=== PATIENT | male | born 1975 | race American Indian/Alaskan Native ===

== ENCOUNTER 2017-01-17 17:41 | Emergency (ER) | payer SELFPAY ==
[2017-01-17 17:53] VITALS: BP 174/123
[2017-01-17 18:39] LABS: Basophils % (Auto) 0.5 % (0.0-1.8); Eosinophils % (Auto) 2.4 % (0.0-4.3); Hematocrit 46.5 % (35.5-45.6); Hemoglobin 15.3 gm/dl (11.8-15.2); Mean Corpuscular HGB Conc 33 % (32-34); Mean Corpuscular Hemoglobin 30 pg (28-32); Mean Corpuscular Volume 91 fl (84-94); Platelet Count 250 K/mm3 (140-440); Red Blood Count 5.09 M/mm3 (3.65-5.03); Red Cell Distribution Width 14.3 % (13.2-15.2); White Blood Count 10.4 K/mm3 (4.5-11.0)
[2017-01-17 18:45] LABS: Alanine Aminotransferase 23 units/L (7-56); Albumin 4.1 g/dL (3.9-5); Albumin/Globulin Ratio 1.3 %; Alkaline Phosphatase 54 units/L (35-129); Anion Gap 17 mmol/L; Blood Urea Nitrogen 10 mg/dL (9-20); Calcium 9.1 mg/dL (8.4-10.2); Carbon Dioxide 25 mmol/L (22-30); Chloride 100.1 mmol/L (98-107); Glucose 90 mg/dL (75-100); Lipase 46 units/L (13-60); Potassium 4.2 mmol/L (3.6-5.0); Sodium 138 mmol/L (137-145); Total Protein 7.2 g/dL (6.3-8.2)
[2017-01-17 19:17] LABS: Bilirubin,Urine NEG (Negative); Blood,Urine NEG (Negative); Ketones,Urine NEG (Negative); Leukocyte Esterase,Urine NEG (Negative); Mucus,Urine FEW /HPF; Nitrite,Urine NEG (Negative); Protein,Urine <15 mg/dL mg/dL (Negative); Urobilinogen,Urine < 2.0 mg/dL (<2.0)
--- NOTE | 2017-01-18 07:46 | ED Elopement Review ---
ED Pt Elopement review - Results review Lab results: Laboratory Tests 01/17/17 01/17/17 01/17/17 18:14 18:14 18:41 WBC 10.4 RBC 5.09 H Hgb 15.3 H Hct 46.5 H MCV 91 MCH 30 MCHC 33 RDW 14.3 Plt Count 250 Lymph % (Auto) 20.5 [place] % (Auto) 7.0 Eos % (Auto) 2.4 Baso % (Auto) 0.5 Lymph # 2.1 [place] # 0.7 Eos # 0.2 Baso # 0.1 Seg Neutrophils % 69.6 Seg Neutrophils # 7.3 Sodium 138 Potassium 4.2 Chloride 100.1 Carbon Dioxide 25 Anion Gap 17 BUN 10 Creatinine 0.8 Estimated GFR > 60 BUN/Creatinine Ratio 12.50 Glucose 90 Calcium 9.1 Total Bilirubin 1.0 AST 53 H ALT 23 Alkaline Phosphatase 54 Total Protein 7.2 Albumin 4.1 Albumin/Globulin Ratio 1.3 Lipase 46 Urine Color Straw Urine Turbidity Clear Urine pH 7.0 Ur Specific [place] 1.013 Urine Protein <15 mg/dl Urine Glucose (UA) Neg Urine Ketones Neg Urine Blood Neg Urine Nitrite Neg Urine Bilirubin Neg Urine Urobilinogen < 2.0 Ur Leukocyte Esterase Neg Urine WBC (Auto) 1.0 Urine RBC (Auto) 4.0 U Epithel Cells (Auto) < 1.0 Urine Mucus Few - Call Back decision Pt Call Back Decision: Pt to F/U with PMD (bp signifcantly elevated. needs recheck and treatment)
== END 2017-01-17 20:38 | disposition left against medical advice (07) ==
LOC: ED 17:41
DX: R10.30 Lower abdominal pain, unspecified (principal); Z53.21 Procedure and treatment not carried out due to patient leaving prior to being seen by health care provider
CPT/HCPCS: 36415; 80053; 81001; 83690; 85025